=== PATIENT | female | born 1955 | race Caucasian/White ===

== ENCOUNTER 2018-11-10 11:44 | Emergency (ER) | payer MEDICARE ==
[~2018-11-10] VITALS: Ht 154.9 cm; Wt 80.0 kg
[2018-11-10] MEDS ORDERED: METF-960 PO (12:05)
[2018-11-10 12:11] LABS: GLUCOSE,POINT OF CARE 165 MG/DL (70-110)
[2018-11-10 12:24] VITALS: BP 129/75
== END 2018-11-10 13:00 | disposition home or self-care (01) ==
LOC: EMS 11:46
DX: H10.9 Unspecified conjunctivitis (principal); I10 Essential (primary) hypertension; E11.9 Type 2 diabetes mellitus without complications; Z88.0 Allergy status to penicillin